=== PATIENT | female | born 1970 | race Caucasian/White ===

== ENCOUNTER 2019-01-05 17:09 | Emergency (ER) | payer BC, SELFPAY ==
[2019-01-05 17:10] VITALS: BP 130/63; PULSE 81; RESP 17; TEMP 36.4; O2SAT 98; BMI 26.6
--- NOTE | 2019-01-05 17:19 | EKG12_ITS ---
Test Reason : CP Blood Pressure : / mmHG Vent. Rate : 071 BPM Atrial Rate : 071 BPM P-R Int : 136 ms QRS Dur : 072 ms QT Int : 400 ms P-R-T Axes : 069 054 028 degrees QTc Int : 434 ms Normal sinus rhythm Septal OH, age undetermined, cannot be excluded Confirmed by CHOLO DEE, LENNY ([id number]), commissioning editor AGUS LEA ([id number]) on 01/07/2019 1:17:29 PM Referred By: RODRIGUEZ/ROSELIA Confirmed By:LENNY EMMANUEL MD
--- NOTE | 2019-01-05 17:51 | ED.VIS.GEN ---
History of Present Illness Chief Complaint: Chest Pain Informant: Patient Onset: Weeks - 1 Context: Onset with activity - See below Timing: Continuous Current Severity: Moderate Maximum Severity: Moderate Worsened by: Immediately with swallowing anything Relieved by: Nothing but has not tried any medications Associated Symptoms: No shortness of breath, hematemesis, bright red blood per rectum, melena Narrative: Patient was eating a week ago while driving, she accidentally coughed, or choked, followed by swallowing the food, which felt like it got stuck then later dislodged. She had some discomfort in her lower chest that gradually improved, the same thing happened again 2 or 3 days later, and she has had lower chest discomfort and epigastric pain ever since. She has had nausea, and significant discomfort when eating or drinking anything although she has been able to pass everything she has eaten. - Past Medical History (1) POTS (postural orthostatic tachycardia syndrome) Status: Chronic Past Medical History - Allergies and Home Meds Allergies/Adverse Reactions: Allergies morphine Adverse Reaction (Verified 01/05/19 17:27) Shortness of breath Primary Care Physician: [facility] Doctor,Out of [NON-STAFF] - Smoking Status: Current every day smoker Drugs: None Review of Systems General: Denies: Chills, Fever, Sweats Eyes: Denies: Visual changes - bilaterally, Diplopia ENT: Denies: Rhinorrhea, Sore throat Cardiovascular: Reports: Chest pain - see HPI Respiratory: Denies: Dyspnea, Cough, Dyspnea on exertion Gastrointestinal: Reports: Abdominal pain, Nausea. Denies: Vomiting, Melena, Hematochezia Genitourinary: Denies: Dysuria, Hematuria, Frequency Musculoskeletal: Denies: Neck pain, Back pain, Swelling, Extremity Pain Skin: Denies: Rash, Wounds Neurological: Denies: Headache, Weakness, Numbness Physical Exam Vital Signs/Narrative: Vital Signs Temp Pulse Resp BP Pulse Ox 01/05/19 17:10 97.6 F L 81 17 130/63 H 98 Inital Vital Signs reviewed: Yes General: Well nourished, Well developed, No Acute Distress Head: Normocephalic, Atraumatic Eyes: Perrl, EOMI ENT: Moist mucous membranes, No rhinorrhea Neck: Supple, Nontender Cardiovascular: Regular rate, Regular rhythm, No murmurs, Normal S1, Normal S2 Respiratory: No distress, CTA bilaterally, Chest nontender Abdomen: Soft, Nontender, Nondistended, Normal bowel sounds Back: Nontender, Normal Inspection Extremities: Nontender, No edema. Negative for: Calf Tenderness Skin: Normal color, No rash Neurological: Alert, Oriented x3, Cranial nerves II-XII grossly intact, Normal Strength, Normal Sensation Psychological: Normal affect, Normal Mood Diagnostic/Tx/Re-eval Clinical Impression(s) from Imaging Studies Chest X-Ray 01/05/19 18:15 IMPRESSION: Normal x-ray examination of the chest. Electronically Signed: Victor Manuel Marcial, at 18:50 EDT Tel , Service support , - Rhythm Strip Rhythm Strip: Sinus Rhythm Rate: 70 Ectopy: None - EKG Initial EKG Interpretation: Sinus Rhythm, No Acute Injury Pattern - nml ekg Prior: Unchanged - Medical Decision Making Chest x-ray is unremarkable and shows no evidence of pneumomediastinum or free air under the diaphragm, after a GI cocktail her symptoms resolved. This is all consistent with an esophageal mucosal abrasion or tear, there is no evidence of a perforation, I think she is stable to be treated as an outpatient with close outpatient follow-up. I discussed with Dr. Rice who does EGDs, and agrees with this plan along with a soft diet. I will place her on a PPI and give her appropriate discharge instructions, she is comfortable with that plan. ED Disposition - Plan for ED Patient: Disposition: Home or Assisted Living Diagnosis: Pain of esophagus Instructions: Nata-Fernandez Tear, DIET, Soft Prescriptions: Pantoprazole Sodium [Protonix] 40 mg PO DAILY #14 tab Transmission Status: Pending to [facility] [place] [id number] Referrals: Koffi Rice MD [STAFF PHYSICIAN] - 1 Week if not improving
[2019-01-05 18:12] VITALS: BP 137/77; PULSE 67; RESP 14; O2SAT 100
[2019-01-05] MEDS: Mag Hydrox/Al Hydrox/Simeth 30 ML UDC PO (18:12)
--- NOTE | 2019-01-05 18:15 | RAD_ITS ---
STUDY: X-RAY CHEST REASON FOR EXAM: Female, 49 years old. Chest pain TECHNIQUE: PA and lateral chest COMPARISON: 07/24/2014 FINDINGS: The lungs are clear and expanded. There is no demonstrated pleural abnormality. Normal size heart. Normal mediastinum and brenda. Normal visualized pulmonary arteries. Normal visualized aortic arch and descending thoracic aorta. Normal visualized thoracic spine. Normal visualized ribs, clavicles, and shoulders. There is no demonstrated abnormality of the visualized soft tissue structures of the upper abdomen. RAD/Chest PA and Lateral IMPRESSION: Normal x-ray examination of the chest. Electronically Signed: Victor Manuel Marcial, at 18:50 EDT Tel , Service support ,
[2019-01-05 19:30] VITALS: BP 130/62; PULSE 78; RESP 18; O2SAT 96
== END 2019-01-05 19:31 | disposition home or self-care (01) ==
PROVIDERS: Emergency Provider Emergency Medicine; Family Provider Family Medicine; PCP Family Medicine
DX: K22.6 Gastro-esophageal laceration-hemorrhage syndrome (principal); R07.9 Chest pain, unspecified; F17.200 Nicotine dependence, unspecified, uncomplicated
CPT/HCPCS: 71046; 93005; 99283; A4216

== ENCOUNTER 2019-09-29 20:38 | Emergency (ER) | payer BC, SELFPAY ==
[2019-09-29 20:38] VITALS: BP 155/87; PULSE 84; RESP 17; TEMP 36.3; O2SAT 100; BMI 25.8
[2019-09-29 20:55] VITALS: O2SAT 100
[2019-09-29] MEDS: Aspirin 81 MG TAB.CHEW 324 MG PO (20:55)
[2019-09-29] MEDS: 0.9% Normal Saline 1,000 ML 150 ML IV (20:55)
--- NOTE | 2019-09-29 20:55 | EKG12_ITS ---
Test Reason : CP Blood Pressure : / mmHG Vent. Rate : 086 BPM Atrial Rate : 086 BPM P-R Int : 140 ms QRS Dur : 066 ms QT Int : 372 ms P-R-T Axes : 080 069 018 degrees QTc Int : 445 ms Sinus rhythm with occasional Premature ventricular complexes Septal infarct , age undetermined Abnormal ECG Confirmed by ANTONIO DEE, ZAY ([id number]), associate entertainment editor AGUS LEA ([id number]) on 10/05/2019 10:51:22 AM Referred By: SINAN Confirmed By:MILVIA ALVAREZ MD
--- NOTE | 2019-09-29 21:14 | RAD_ITS ---
STUDY: X-RAY CHEST REASON FOR EXAM: Female, 49 years old. chest pain. TECHNIQUE: AP portable COMPARISON: January 05, 2019 FINDINGS: There is mild interstitial thickening in both lower lobes with subtle groundglass opacity greater on the right possibly representing focal inflammatory changes.. There is no demonstrated pleural abnormality. Normal size heart. Normal mediastinum and brenda. Normal visualized pulmonary arteries. Normal visualized aortic arch and descending thoracic aorta. Normal visualized thoracic spine. Normal visualized ribs, clavicles, and shoulders. There is no demonstrated abnormality of the visualized soft tissue structures of the upper abdomen. RAD/Chest 1 View (Portable) IMPRESSION: Mild interstitial thickening with groundglass opacities in the lower lobes greater on the right possibly inflammatory. Recommend clinical correlation to exclude possibility of atypical viral pneumonia. Electronically Signed: Heriberto Berg MD at 21:37 EDT , Service support ,
[2019-09-29 21:22] LABS: Absolute Lymphocyte Count 3.05 X10^3/uL (0.83-4.51); Absolute Neutrophil Count 4.2 X10^3/uL (2.0-7.7); Basophil# 0.06 X10^3/uL; Basophil% 0.7 % (0-1); Eosinophil# 0.28 X10^3/uL; Eosinophils% 3.4 % (0-5); Hematocrit 41.1 % (37-47); Hemoglobin 13.1 g/dL (12.0-15.0); Lymphocyte # 3.05 X10^3/ul (4.0); Lymphocyte % 37.1 % (19-41); Mean Corp Hgb Conc 31.9 g/dL (32-36); Mean Corpuscular Volume 94.3 fL (81-99); Mean Platelet Vol. 10.1 fl (6.2-12.0); Monocyte# 0.59 X10^3/uL; Monocyte% 7.2 % (0-10); NRBC Flagged by Analyzer 0 % (0-5); Neutrophil # 4.23 X10^3/uL (2.7-7.7); Neutrophil % 51.5 % (47-70); Platelet Count 295 K/mm3 (150-450); Red Blood Count 4.36 M/mm3 (4.2-5.4); White Blood Count 8.2 K/mm3 (4.4-11.0)
[2019-09-29 21:30] LABS: D-Dimer Quantitative (DVT/PE) 0.36 FEU/ug/m (0.27-0.49)
[2019-09-29 21:37] VITALS: BP 139/67; PULSE 80; RESP 20; O2SAT 100
[2019-09-29 21:38] LABS: ALB/GLOB Ratio 1.1 RATIO (0.9-2.4); AST(SGOT) 17 U/L (15-37); Alanine Aminotransfer ALT/SGPT 20 U/L (13-56); Albumin, Serum 4.1 g/dL (3.2-5.0); Alkaline Phosphatase 88 U/L (45-117); Anion Gap 5 (5-15); BUN 7 mg/dL (7-18); BUN/Creat Ratio 11.1 RATIO (10-20); Calcium,Total 9.1 mg/dL (8.5-10.1); Chloride 111 mmol/L (98-107); Creatinine, Serum 0.63 mg/dL (0.55-1.02); EST Glomerular Filtration Rate 106 mL/min (>60); Est Glom Filt Rate - Afr Amer 129 mL/min (>60); Estimated Creatinine Clearance 105.04 ml/min; Globulin 3.8 g/dL (2.2-4.2); Glucose 111 mg/dL (74-106); Potassium 3.6 mmol/L (3.5-5.1); Protein, Total 7.9 g/dL (6.4-8.2); Sodium Level 141 mmol/L (136-145)
[2019-09-29 23:13] VITALS: BP 139/82; PULSE 68; RESP 18; O2SAT 98
--- NOTE | 2019-09-29 23:33 | ED.DCSUM_ITS ---
- ER Visit Summary Date of Service: 09/29/19 Chief Complaint: [Chest pain History of Present Illness: The patient is a 49 F [presents with chest pain that she has had for over a week. Initially she had the pain for for 5 days and then it went away and then started coming back again 2 days ago. Patient de scribes a dull ache in the left chest that last about 6 or 7 or 8 seconds and then goes away it kind of feels like a squeezing at times. She denies any nausea or vomiting with it. She denies any diaphoresis. The pain is not exertional. Patient states that she has been sick since August 19 with fever and cough but has not had a fever in over 2 weeks. Patient tried to get COVID-19 testing unsuccessfully. Patient states that her daughter is also ill with fever and cough. She has been self isolating for the last 30 days. She denies recent travel or surgery.] Physical Examination: [HEENT-PERRLA, EOMI. Cranial nerves II through XII grossly intact. TMs clear. Mucous membranes moist. No adenopathy. Cardiovascular-regular rate and rhythm without murmur or ectopy Lungs-clear to auscultation, chest wall stable without crepitus or subcu emphysema Abdomen-normoactive bowel sounds, soft, nontender, no rebound or rigidity, no peritoneal signs. Extremities-intact ?4, normal range of motion, normal pulses, atraumatic] Test Results: [CBC with differential obtained showing of 8.2, hemoglobin 13, hematocrit 41, placed to 95. Chemistries unremarkable. Troponin less than 0.015. Liver enzymes were normal. Chest x-ray showed mild interstitial thickening and groundglass opacities questionable atypical viral etiology bilaterally.] Emergency Department Course and Treatment: [I attempted to have patient tested for COVID-19 through the [facility] department however they denied her testing due to the fact that she does not meet their criteria for age and she is not being admitted. She was started on Levaquin 750 mg p.o.] Treatment Plan: [Patient will be started on Levaquin. Patient advised to follow-up with her primary care physician to potentially get testing at a private lab. Patient advised to continue to self isolate. At this point I do not feel her chest pain is cardiac in nature given that it is very atypical and her THOR risk score is a 0 and her heart score is a 2.] Disposition: [Discharged home in stable condition] Impression: [Chest pain-etiology uncertain URI] This note was generated with [employer] dictation software. It may contain incorrect words, spelling, and punctuation that were not noted in review of the chart prior to signing ED Disposition - Plan for ED Patient: Referrals: Heriberto Cam MD [Primary Care Provider] -
--- NOTE | 2019-09-29 23:37 | ED.DEP ---
ED Disposition - Plan for ED Patient: Instructions: ED Chest Pain Atypical Unkn Cause, ED Upper Resp Infec Abx Tx Prescriptions: Levofloxacin [Levaquin] 750 mg PO DAILY #7 tab Prescription Printed Referrals: Heriberto Cam MD [Primary Care Provider] - 5-7 Days
[2019-09-29] MEDS: levoFLOXacin IV 750 MG/150 ML BAG 100 MG IV (23:56)
[2019-09-30 01:44] VITALS: BP 147/82; PULSE 76; RESP 18; O2SAT 100
== END 2019-09-30 01:45 | disposition home or self-care (01) ==
LOC: ED 21:13
PROVIDERS: Emergency Provider Emergency Medicine; PCP Family Medicine
DX: J06.9 Acute upper respiratory infection, unspecified (principal); R07.9 Chest pain, unspecified
CPT/HCPCS: 71045; 80053; 84484; 85025; 85379; 93005; 96361; 96365; 96366; 99285; J7030; A4216